=== PATIENT | female | born 1980 | race Caucasian/White ===

== ENCOUNTER 2016-07-20 00:45 | Emergency (ER) | payer SELFPAY ==
[~2016-07-20] VITALS: Ht 172.7 cm; Wt 70.3 kg
[2016-07-20] MEDS ORDERED: CIPR2.5D AS (01:29)
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
[2016-07-20] MEDS ORDERED: ACETAMINOPHEN 325 MG TABLET. PO ONE (01:45)
[2016-07-20 06:27] VITALS: BP 140/89
== END 2016-07-20 02:10 | disposition home or self-care (01) ==
LOC: EEVIPCON 00:45 → ER 00:45
DX: S09.22XA Traumatic rupture of left ear drum, initial encounter (principal); S09.90XA Unspecified injury of head, initial encounter; Z88.2 Allergy status to sulfonamides; Y04.2XXA Assault by strike against or bumped into by another person, initial encounter; Y93.89 Activity, other specified; Y99.8 Other external cause status; Y92.89 Other specified places as the place of occurrence of the external cause
CPT/HCPCS: 99283